=== PATIENT | male | born 1985 | race American Indian/Alaskan Native ===

== ENCOUNTER 2022-07-14 18:25 | Emergency (ER) | payer OTHER ==
[2022-07-14] MEDS ORDERED: traMADol 50 MG Tab PO ONE (18:26)
[2022-07-14 19:06] LABS: ESTIMATED GFR 89 mL/min (>60)
[2022-07-14] MEDS ORDERED: Lidocaine 4% 1 each Patch TOP SCH (20:30)
== END 2022-07-14 20:35 | disposition home or self-care (01) ==
LOC: FB.ED 18:25 → EDSEX 18:25 → FB.ED 20:35
DX: R07.81 Pleurodynia (principal); F17.210 Nicotine dependence, cigarettes, uncomplicated; Z91.010 Allergy to peanuts; Y04.0XXA Assault by unarmed brawl or fight, initial encounter
CPT/HCPCS: 36415; 71101; 80048; 81001; 85025; 99283; A9270